=== PATIENT | male | born 1975 | race Caucasian/White ===

== ENCOUNTER 2023-02-27 13:10 | Emergency (ER) | payer OTHER ==
[~2023-02-27] VITALS: Ht 188 cm; Wt 93.4 kg
[2023-02-27 14:51] VITALS: BP 135/84
[2023-02-27] MEDS ORDERED: IBUPROFEN 600 MG TAB PO ONE (15:15)
[2023-02-27] MEDS ORDERED: predniSONE 20 MG TAB PO ONE (15:15)
[2023-02-27] MEDS ORDERED: IBUP1TAB5 PO (16:20)
[2023-02-27] MEDS ORDERED: CYCL-611 PO (16:20)
[2023-02-27 17:09] LABS: Urine Bacteria NONE SEEN /hpf (None Seen); Urine Blood Negative /uL (Negative); Urine Hyaline Cast FEW /lpf (0 - 2); Urine Mucus FEW (None Seen); Urine Specific Gravity 1.011 (1.001-1.035); Urine WBC 2 /hpf (0 - 3)
== END 2023-02-27 17:37 | disposition home or self-care (01) ==
LOC: ER 13:10
DX: S73.101A Unspecified sprain of right hip, initial encounter (principal); S39.012A Strain of muscle, fascia and tendon of lower back, initial encounter; N28.89 Other specified disorders of kidney and ureter; Z79.1 Long term (current) use of non-steroidal anti-inflammatories (NSAID); Z79.899 Other long term (current) drug therapy; V87.8XXA Person injured in other specified noncollision transport accidents involving motor vehicle (traffic), initial encounter; Y93.55 Activity, bike riding; Y92.89 Other specified places as the place of occurrence of the external cause; Y99.8 Other external cause status
CPT/HCPCS: 72131; 72192; 81001; 99284; J7512

== ENCOUNTER → 2024-11-30 | Emergency (ER) | payer OTHER ==
[~2024-11-30] MED LIST: CYCL-611 PO; IBUP1TAB5 PO
== END | disposition left against medical advice (07) ==
LOC: ER 16:02
DX: R06.02 Shortness of breath (principal); Z53.21 Procedure and treatment not carried out due to patient leaving prior to being seen by health care provider